=== PATIENT | male | born 1960 | race African-American/Black ===

== ENCOUNTER 2017-04-07 14:17 | Observation (INO) | payer MEDICAID ==
[~2017-04-07 14:17] MED LIST: ARTHRITIS PAIN650 M3 PO; CATAPRES0.1 MG PO; COLACE100 MG PO; FLEXERIL10 MG PO; HYDRALAZINE HCL25 MG PO; HYDROCODON-ACE1 EAC7 PO; IBUPROFEN800 MG PO; KEFLEX500 MG PO; NO MEDS; NORVASC5 MG PO; PAIN RELIEF650 MG PO; PERCOCET 5/3251 TAB PO
[2017-04-07] MEDS ORDERED: HYDROCHLOROTHIA25 M1 PO (14:25)
[2017-04-07] MEDS ORDERED: TENORMIN25 M1 PO (14:26)
[2017-04-07] MEDS ORDERED: AMLODIPINE BESY10 M1 PO (14:26)
[2017-04-07] MEDS ORDERED: PRINIVIL20 M1 PO (14:26)
[2017-04-07 14:45] LABS: BASO % 0.3 % (0-2); EOS % 3.5 % (0-7); EOSINOPHIL ABSOLUTE COUNT 0.2 tho/cmm (0.0-0.7); HGB-HEMOGLOBIN 16.5 gm/dl (13.5-17.0); IMMATURE GRANULOCYTES ABSOLUTE 0.01 tho/cmm (0-0.03); IMMATURE GRANULOCYTES PERCENT 0.2 % (0-0.3); LYMPH ABSOLUTE COUNT 2.5 tho/cmm (0.8-4.5); MCH (MEAN CORPUSCULAR HGB) 29.7 pg (28.0-32.0); MCHC MEAN CORPUSCULAR HGB CONC 35.1 % (32.0-36.0); MCV (MEAN CELL VOLUME) 84.7 fl (82.0-96.0); MEAN PLATELET VOLUME 10.1 cmc (9.4-12.4); MONO % 8.2 % (0-12); MONOCYTE ABSOLUTE COUNT 0.5 tho/cmm (0.0-1.2); NEUTROPHIL ABSOLUTE COUNT 2.8 tho/cmm (1.6-8.0); NEUTROPHIL-AUTOMATED 2.8 tho/cmm (1.6-8.0); NEUTROPHILS % 46.8 % (40-80); PLATELET COUNT 225 tho/cmm (150-450); RED BLOOD COUNT 5.55 mil/cmm (4.40-5.70); RED CELL DISTRIBUTION WIDTH 12.6 % (12.4-16.4); WHITE BLOOD COUNT 6.1 tho/cmm (4.0-10.0)
[2017-04-07 14:59] LABS: ANION GAP 12 mmol/L (0-20); BLOOD UREA NITROGEN 18 mg/dl (6-24); CALCIUM 9.2 mg/dl (8.5-10.5); CARBON DIOXIDE-VENOUS 29 mmol/L (22-32); CHLORIDE 100 mmol/l (96-110); CREATININE 1.21 mg/dl (0.60-1.30); GLUCOSE 105 mg/dL (70-110); POTASSIUM 3.7 mmol/L (3.7-5.1); SODIUM 137 mmol/L (135-145); eGFR VALUE FOR BLACK 78 mL/Min
[2017-04-07] MEDS ORDERED: GOLYTELY S4000 ML/EA PO (15:26)
[2017-04-08] MEDS ORDERED: OMEPRAZOLE20 M4 PO (12:47)
== END 2017-04-08 13:05 ==
LOC: EDMED 14:17 → EMR2 16:12 → CAR1 19:15
PROVIDERS: Emergency Medicine; Physician Assistant; ADMIT Internal Medicine Interventional Cardiology
DX: I08.3 Combined rheumatic disorders of mitral, aortic and tricuspid valves (principal); I10 Essential (primary) hypertension; Z79.899 Other long term (current) drug therapy; Z98.890 Other specified postprocedural states; Z82.49 Family history of ischemic heart disease and other diseases of the circulatory system
CPT/HCPCS: A9500; C8929; G0378